=== PATIENT | female | born 1995 | race American Indian/Alaskan Native ===

== ENCOUNTER 2018-12-14 08:04 | Inpatient (IN) | payer MEDICAID ==
[2018-12-14] MEDS ORDERED: LACTATED RINGERS 1,000 ML IV SCH ×3 (09:00→10:00)
[2018-12-14] MEDS ORDERED: STADOL IV PRN (09:09)
[2018-12-14] MEDS ORDERED: MINERAL OIL PO PRN ×2 (09:09→09:51)
[2018-12-14] MEDS ORDERED: ZOFRAN IV PRN ×2 (09:09→17:20)
[2018-12-14] MEDS ORDERED: AMPICILLIN/NS 2 GM/100 ML 2 GM/100 ML BAG IV ONE (09:09)
[2018-12-14] MEDS ORDERED: BRETHINE IVP PRN ×2 (09:09→09:51)
[2018-12-14] MEDS ORDERED: XYLOCAINE 2% INFILTRATI ONE ×2 (09:09→10:00)
[2018-12-14] MEDS ORDERED: BRETHINE SUB-Q PRN ×2 (09:09→09:51)
[2018-12-14] MEDS ORDERED: SUBLIMAZE IV PRN (09:09)
[2018-12-14 09:37] LABS: Basophils % (Auto) 0.6 % (0.0-1.8); Eosinophils # (Auto) 0.1 K/mm3 (0.0-0.4); Hematocrit 36.8 % (30.3-42.9); Hemoglobin 12.3 gm/dl (10.1-14.3); Lymphocytes # (Auto) 1.5 K/mm3 (1.2-5.4); Lymphocytes % (Auto) 29.8 % (13.4-35.0); Mean Corpuscular HGB Conc 34 % (30-34); Mean Corpuscular Volume 79 fl (79-97); Monocytes # (Auto) 0.5 K/mm3 (0.0-0.8); Monocytes % (Auto) 9.5 % (0.0-7.3); Platelet Count 197 K/mm3 (140-440); Red Blood Count 4.68 M/mm3 (3.65-5.03); Red Cell Distribution Width 15.6 % (13.2-15.2)
[2018-12-14 09:42] LABS: Bacteria,Urine 1+ /HPF (Negative); Bilirubin,Urine NEG (Negative); Blood,Urine SM (Negative); Color,Urine Yellow (Yellow); Mucus,Urine FEW /HPF; Protein,Urine <15 mg/dL mg/dL (Negative)
[2018-12-14 09:47] LABS: Alanine Aminotransferase 8 units/L (7-56); Albumin 3.7 g/dL (3.9-5); BUN/Creatinine Ratio 10; Blood Urea Nitrogen 6 mg/dL (7-17); Calcium 8.6 mg/dL (8.4-10.2); Hemolysis Index 12
--- NOTE | 2018-12-14 09:51 | History and Physical Report ---
History of Present Illness Date of examination: 12/14/18 Date of admission: 12/14/18 08:56 Chief complaint: Labor History of present illness: Pt is a 23yo BF EDC 12/12/18; EGA 40 2/7 weeks presents to L&D complaining of RUC's q 3-4 mins. She had 1 visit at [facility] 10/27/18 and GBS was positive. She was also seen at [facility] for late care. Past History Past Medical History: no pertinent history Past Surgical History: no surgical history Family/Genetic History: none Social history: no significant social history, single - Obstetrical History Expected Date of Delivery: 12/12/18 Actual Gestation: 40 Week(s) 2 Day(s) : 2 Medications and Allergies Allergies Allergy/AdvReac Type Severity Reaction Status Date / Time shellfish derived Allergy Itching Verified 12/14/18 08:17 shrimp Allergy Itching Verified 12/14/18 08:17 Active Meds: Active Medications Butorphanol Tartrate (Stadol) 2 mg IV Q2H PRN PRN Reason: Pain , Severe (7-10) Ephedrine Sulfate (Ephedrine Sulfate) 10 mg IV Q2M PRN PRN Reason: Hypotension Fentanyl (Sublimaze) 100 mcg IV Q2H PRN PRN Reason: Labor Pain Lactated Ringer's (Lactated Ringers) 1,000 mls @ 125 mls/hr IV DIRECT GREGORY Ampicillin Sodium (Polycillin/Ns 2 Gm/100 Ml) 2 gm in 100 mls @ 100 mls/hr IV ONCE ONE; Protocol Stop: 12/14/18 10:08 Ampicillin Sodium (Ampicillin/Ns 1 Gm/50 Ml) 1 gm in 50 mls @ 100 mls/hr IV Q4HR GREGORY; Protocol Lactated Ringer's (Lactated Ringers) 1,000 mls @ 125 mls/hr IV DIRECT GREGORY Oxytocin/Sodium Chloride (Pitocin/Ns 20 Unit/1000ml Drip) 20 units in 1,000 mls @ 125 mls/hr IV DIRECT GREGORY Mineral Oil (Mineral Oil) 30 ml PO QHS PRN PRN Reason: Constipation Ondansetron HCl (Zofran) 4 mg IV Q8H PRN PRN Reason: Nausea And Vomiting Terbutaline Sulfate (Brethine) 0.25 mg SUB-Q ONCE PRN PRN Reason: Hyperstimulation/Hypertonicity Terbutaline Sulfate (Brethine) 0.25 mg IVP ONCE PRN PRN Reason: Hyperstimulation/Hypertonicity Review of Systems All systems: negative - Vital Signs Vital signs: Vital Signs Pulse BP 88 126/82 12/14/18 08:29 12/14/18 08:29 Temp Pulse Resp BP Pulse Ox 88 126/82 12/14/18 08:29 12/14/18 08:29 - Physical Exam Breasts: Positive: deferred Cardiovascular: Regular rate Lungs: Positive: Clear to auscultation Abdomen: Positive: normal appearance Genitourinary (Female): Positive: normal external genitalia Vagina: Positive: normal moisture Uterus: Positive: enlarged Extremities: Positive: normal - Obstetrical FHR: category 1 Uterine Contraction Monitor Mode: External Cervical Dilatation: 6 (per nurse) Cervical Effacement Percentage: 80 (per nusre) station: -2 Uterine Contraction Pattern: Regular Uterine Tone Measurement Phase: Contraction Uterine Contraction Intensity: Moderate Results Result Diagrams: 12/14/18 08:35 12/14/18 08:35 Abnormal lab results 12/14/18 12/14/18 Range/Units 08:35 08:35 MCH 26 L (28-32) pg RDW 15.6 H (13.2-15.2) % O'Brien % (Auto) 9.5 H (0.0-7.3) % Sodium 133 L (137-145) mmol/L Carbon Dioxide 20 L (22-30) mmol/L BUN 6 L (7-17) mg/dL Creatinine 0.6 L (0.7-1.2) mg/dL Alkaline Phosphatase 225 H (35-129) units/L Albumin 3.7 L (3.9-5) g/dL All other labs normal. Assessment and Plan - Patient Problems (1) 40 weeks gestation of Onset Date: 12/14/18 Current Visit: Yes Status: Acute Plan to address problem: A: IUP @ 40 2/7 weeks in labor Insufficient care +GBS P: Admit to L&D for expectant vaginal delivery IV Ampicillin (2) Insufficient care in third trimester Onset Date: 12/14/18 Current Visit: Yes Status: Acute (3) GBS (group B Streptococcus carrier), +RV culture, currently Onset Date: 12/14/18 Current Visit: Yes Status: Acute
[2018-12-14] MEDS ORDERED: PITOCin/NS 20 UNIT/1000ML DRIP 20 UNITS/1,000 ML BAG IV SCH ×3 (10:00→18:00)
[2018-12-14] MEDS ORDERED: PITOCin/NS 30 UNIT/500ML 30 UNITS/500 ML BAG IV SCH ×2 (10:00)
[2018-12-14] MEDS ORDERED: AMPICILLIN/NS 1 GM/50 ML 1 GM/50 ML BAG IV SCH (13:12)
[2018-12-14] MEDS ORDERED: NARCAN 2 MG/2 ML IV PRN (15:08)
--- NOTE | 2018-12-14 15:10 | Anesthesia Consultation ---
Anesthesia Consult and Med Hx - Airway Anesthetic Teeth Evaluation: Good ROM Head & Neck: Adequate Mental/Hyoid Distance: Adequate Mallampati Class: Class II Intubation Access Assessment: Good - Pulmonary Exam CTA: Yes - Cardiac Exam Cardiac Exam: RRR - Pre-Operative Health Status ASA Pre-Surgery Classification: ASA2 Proposed Anesthetic Plan: Epidural - Pulmonary Hx Asthma: No COPD: No Hx Pneumonia: No - Cardiovascular System Hx Hypertension: No - Central Nervous System Hx Seizures: No Hx Psychiatric Problems: No - Endocrine Hx Renal Disease: No Hx End Stage Renal Disease: No Hx Hypothyroidism: No Hx Hyperthyroidism: No - Hematic Hx Anemia: No Hx Sickle Cell Disease: No - Other Systems Hx Alcohol Use: No
--- NOTE | 2018-12-14 15:11 | Anesthesia Day of Surgery ---
Anesthesia Day of Surgery - Day of Surgery Patient Examined: Yes Patient H&P Reviewed: Yes Patient is NPO: Yes Beta Blockers: No Cardiac Clearance: No Pulmonary Clearance: No Keaton's Test: N/A
[2018-12-14] MEDS ORDERED: MARCAINE 0.25% INFILTRATI ONE (15:43)
[2018-12-14] MEDS ORDERED: fentaNYL-BUPIV 2 MCG/ML-0.125% 200 MCG/100 ML BAG EPIDURAL SCH (16:00)
--- NOTE | 2018-12-14 17:18 | Procedure Note ---
OB Delivery Note - Delivery Date of Delivery: 12/14/18 Surgeon: DINO ROSEN Estimated blood loss: 200cc - Vaginal Delivery presentation: vertex Delivery position: OA Intrapartum events: PROM->1hr before delivery, meconium, shoulder dystocia (resolved with Moose's positioning and suprapubic pressure) Delivery induction: none Delivery augmentation: rupture of membranes, pitocin Delivery monitor: external FHT, external uterine Route of delivery: Delivery placenta: spontaneous Delivery cord: 3 umbilical vessels Episiotomy: none Delivery laceration: 1st degree (perineal) Delivery repair: vicryl Anesthesia: epidural Delivery comments: Infant delivered OA with suprapubic pressure for shoulder dystocia, and handed to awaiting Peds/Rt in attendance - A at 1 minute: 7 at 5 minutes: 8 Gender: Male (4255gms)
[2018-12-14] MEDS ORDERED: DULCOLAX PR PRN (17:20)
[2018-12-14] MEDS ORDERED: TYLENOL PO PRN (17:20)
[2018-12-14] MEDS ORDERED: TUCKS PAD TP PRN (17:20)
[2018-12-14] MEDS ORDERED: MILK OF MAGNESIA PO PRN (17:20)
[2018-12-14] MEDS ORDERED: BENADRYL PO PRN (17:20)
[2018-12-14] MEDS ORDERED: PHENERGAN PO PRN (17:20)
[2018-12-14] MEDS ORDERED: PHENERGAN PR PRN (17:20)
[2018-12-14] MEDS ORDERED: LANSINOH TP PRN (17:20)
[2018-12-14] MEDS ORDERED: SODIUM CHLORIDE FLUSH SYRINGE 10 ML IV SCH (18:00)
[2018-12-14] MEDS: IBUPROFEN PO SCH (21:30)
[2018-12-14] MEDS: COLACE PO SCH (21:30)
[2018-12-14] MEDS: FEOSOL PO SCH (21:30)
[2018-12-15] MEDS: NORCO 5/325 PO PRN ×2 (04:49→20:43)
[2018-12-15] MEDS ORDERED: BOOSTRIX IM ONE (06:00)
[2018-12-15 06:31] LABS: Hematocrit 30.3 % (30.3-42.9); Hemoglobin 10.2 gm/dl (10.1-14.3)
--- NOTE | 2018-12-15 08:49 | Progress Note ---
Assessment and Plan - Patient Problems (1) 40 weeks gestation of Onset Date: 12/14/18 Current Visit: Yes Status: Resolved (2) Insufficient care in third trimester Onset Date: 12/14/18 Current Visit: Yes Status: Resolved (3) GBS (group B Streptococcus carrier), +RV culture, currently Onset Date: 12/14/18 Current Visit: Yes Status: Resolved (4) (normal spontaneous vaginal delivery) Onset Date: 12/15/18 Current Visit: Yes Status: Resolved Plan to address problem: A: S/P - PPD #1 Doing well Asymptomatic anemia - stable P: May go home tomorrow. Subjective - Subjective Date of service: 12/15/18 Principal diagnosis: s/p - PPD #1 Interval history: Pt is feeling well without complaints. Bleeding improved. Patient reports: appetite normal, voiding normally, pain well controlled, flatus, ambulating normally, no dizzy ambulation, no nauseated : doing well, nursing well Objective - Vital Signs Latest vital signs: Vital Signs Temp Pulse Resp BP BP Pulse Ox 12/15/18 06:00 98.1 F 68 18 105/51 97 12/15/18 00:47 98 F 98 H 18 115/55 96 12/14/18 19:37 98.2 F 67 18 110/48 96 12/14/18 18:35 92 H 111/58 12/14/18 18:20 96 H 118/62 12/14/18 18:05 88 119/61 12/14/18 17:51 89 123/61 12/14/18 17:35 96 H 127/57 12/14/18 17:22 102 H 121/59 12/14/18 17:21 106 H 145/112 12/14/18 16:07 87 133/63 12/14/18 16:00 75 135/60 12/14/18 15:57 76 94 12/14/18 15:54 67 140/88 12/14/18 15:53 82 98 12/14/18 15:48 92 H 98 12/14/18 15:43 77 98 12/14/18 10:20 16 12/14/18 09:56 87 131/78 12/14/18 09:55 97.9 F 87 16 131/78 97 Intake and Output 12/14/18 12/15/18 12/15/18 22:59 06:59 14:59 Intake Total 840 Output Total 800 400 Balance -800 440 Intake: Intake, Free Water 840 Output: Urine 800 400 Void 800 400 Other: Total, Output Amount 800 400 # Voids Void 800 Estimated Blood Loss 200 - Exam Breasts: Present: deferred Abdomen: Present: normal appearance, soft Uterus: Present: normal, firm, fundal height below umbilicus Extremities: Present: normal - Labs Labs: Abnormal lab results 12/14/18 12/14/18 Range/Units 08:35 08:35 MCH 26 L (28-32) pg RDW 15.6 H (13.2-15.2) % Braxton % (Auto) 9.5 H (0.0-7.3) % Sodium 133 L (137-145) mmol/L Carbon Dioxide 20 L (22-30) mmol/L BUN 6 L (7-17) mg/dL Creatinine 0.6 L (0.7-1.2) mg/dL Alkaline Phosphatase 225 H (35-129) units/L Albumin 3.7 L (3.9-5) g/dL Laboratory Tests 12/14/18 12/14/18 12/14/18 08:35 08:35 08:35 WBC 5.1 RBC 4.68 Hgb 12.3 Hct 36.8 MCV 79 MCH 26 L MCHC 34 RDW 15.6 H Plt Count 197 Lymph % (Auto) 29.8 Braxton % (Auto) 9.5 H Eos % (Auto) 1.0 Baso % (Auto) 0.6 Lymph # 1.5 Braxton # 0.5 Eos # 0.1 Baso # 0.0 Seg Neutrophils % 59.1 Seg Neutrophils # 3.0 Sodium Potassium Chloride Carbon Dioxide Anion Gap BUN Creatinine Estimated GFR BUN/Creatinine Ratio Glucose Calcium Total Bilirubin AST ALT Alkaline Phosphatase Total Protein Albumin Albumin/Globulin Ratio Urine Color Yellow Urine Turbidity Clear Urine pH 7.0 Ur Specific [place] 1.020 Urine Protein <15 mg/dl Urine Glucose (UA) Neg Urine Ketones Neg Urine Blood Sm Urine Nitrite Neg Urine Bilirubin Neg Urine Urobilinogen 2.0 Ur Leukocyte Esterase Tr Urine WBC (Auto) 4.0 Urine RBC (Auto) 3.0 U Epithel Cells (Auto) 4.0 Urine Bacteria (Auto) 1+ Urine Mucus Few RPR Hep Bs Antigen HIV 1&2 Antibody Rapid HIV P24 Antigen Rubella IgG Antibody Immune Blood Type Antibody Screen 12/14/18 12/14/18 12/14/18 08:35 08:35 08:35 WBC RBC Hgb Hct MCV MCH MCHC RDW Plt Count Lymph % (Auto) Braxton % (Auto) Eos % (Auto) Baso % (Auto) Lymph # Braxton # Eos # Baso # Seg Neutrophils % Seg Neutrophils # Sodium Potassium Chloride Carbon Dioxide Anion Gap BUN Creatinine Estimated GFR BUN/Creatinine Ratio Glucose Calcium Total Bilirubin AST ALT Alkaline Phosphatase Total Protein Albumin Albumin/Globulin Ratio Urine Color Urine Turbidity Urine pH Ur Specific [place] Urine Protein Urine Glucose (UA) Urine Ketones Urine Blood Urine Nitrite Urine Bilirubin Urine Urobilinogen Ur Leukocyte Esterase Urine WBC (Auto) Urine RBC (Auto) U Epithel Cells (Auto) Urine Bacteria (Auto) Urine Mucus RPR Nonreactive Hep Bs Antigen Non-reactive HIV 1&2 Antibody Rapid Non react HIV P24 Antigen Non react Rubella IgG Antibody Blood Type Antibody Screen 12/14/18 12/14/18 12/15/18 08:35 08:35 06:03 WBC RBC Hgb 10.2 Hct 30.3 D MCV MCH MCHC RDW Plt Count Lymph % (Auto) Braxton % (Auto) Eos % (Auto) Baso % (Auto) Lymph # Braxton # Eos # Baso # Seg Neutrophils % Seg Neutrophils # Sodium 133 L Potassium 4.4 Chloride 102.3 Carbon Dioxide 20 L Anion Gap 15 BUN 6 L Creatinine 0.6 L Estimated GFR > 60 BUN/Creatinine Ratio 10 Glucose 79 Calcium 8.6 Total Bilirubin 0.60 AST 18 ALT 8 Alkaline Phosphatase 225 H Total Protein 7.0 Albumin 3.7 L Albumin/Globulin Ratio 1.1 Urine Color Urine Turbidity Urine pH Ur Specific [place] Urine Protein Urine Glucose (UA) Urine Ketones Urine Blood Urine Nitrite Urine Bilirubin Urine Urobilinogen Ur Leukocyte Esterase Urine WBC (Auto) Urine RBC (Auto) U Epithel Cells (Auto) Urine Bacteria (Auto) Urine Mucus RPR Hep Bs Antigen HIV 1&2 Antibody Rapid HIV P24 Antigen Rubella IgG Antibody Blood Type O POSITIVE Antibody Screen Negative
[2018-12-15] MEDS: IBUPROFEN PO SCH (10:08)
[2018-12-15] MEDS: COLACE PO SCH ×2 (10:09→22:40)
[2018-12-15] MEDS: FEOSOL PO SCH ×2 (10:09→22:40)
[2018-12-15] MEDS: PRENATAL VITAMIN PO SCH (10:09)
[2018-12-15] MEDS ORDERED: M-M-R II VACCINE SUB-Q ONE (17:20)
[2018-12-16] MEDS: IBUPROFEN PO SCH ×4 (03:09→18:38)
[2018-12-16] MEDS: NORCO 5/325 PO PRN (03:25)
--- NOTE | 2018-12-16 08:03 | Discharge Summary ---
Providers - Providers Date of Admission: 12/14/18 08:56 Date of discharge: 12/16/18 Attending physician: DINO ROSEN Primary care physician: DINO ROSEN Hospitalization Reason for admission: active labor, IUP at term Delivery: Episiotomy: none Laceration: 1st degree Other procedures: none complications: none Discharge diagnosis: IUP at term delivered [place] baby: male Hospital course: Pt is a 23yo BF EDC 12/12/18; EGA 40 2/7 weeks who presented to L&D complaining of RUC's q 3-4 mins. She had 1 visit at [facility] 10/27/18 and GBS was positive. She had a with shoulder dystocia for a 4255gm male . Postpatum course was unremarkable, and she was discharged to home on PPD #2 in stable condition. Condition at discharge: Good Disposition: DC-01 TO HOME OR SELFCARE - Discharge Diagnoses (1) 40 weeks gestation of Status: Resolved (2) Insufficient care in third trimester Status: Resolved (3) GBS (group B Streptococcus carrier), +RV culture, currently Status: Resolved (4) (normal spontaneous vaginal delivery) Status: Resolved Plan - Discharge Medications Prescriptions: Ferrous Sulfate [Feosol 325 MG tab] 325 mg PO BID #60 tablet Ibuprofen [Motrin 600 MG tab] 600 mg PO Q6HR #30 tablet Vit-Fe Fumar-FA [ Vitamin] 1 each PO QDAY #30 tablet - Provider Discharge Summary Activity: routine, no sex for 6 weeks, no heavy lifting 4 weeks, no strenuous exercise Diet: routine Instructions: routine Additional instructions: [] Smoking cessation referral if applicable(refer to patient education folder for contact #) [] Refer to [facility] Booklet Call your doctor immediately for: * Fever > 100.5 * Heavy vaginal bleeding ( >1 pad per hour) * Severe persistent headache * Shortness of breath * Reddened, hot, painful area to leg or breast * Drainage or odor from incision. * Keep incision clean and dry at all times and follow doctor's instructions regarding bathing/showering - Follow up plan Follow up: DINO ROSEN MD [Primary Care Provider] - 6 Weeks GAVIN MONROE CNM [Advanced Practice Nurse] - 6 Weeks
[2018-12-16 09:49] VITALS: BP 112/70
[2018-12-16] MEDS: PRENATAL VITAMIN PO SCH (11:52)
[2018-12-16] MEDS: FEOSOL PO SCH (11:52)
[2018-12-16] MEDS: COLACE PO SCH (11:52)
== END 2018-12-16 19:15 | disposition home or self-care (01) | DRG 775 ==
LOC: TRG 08:04 → LD 08:56 → OB 19:36
PROVIDERS: ADMIT Obstetrics & Gynecology; ATTEND Obstetrics & Gynecology
PROC: 10E0XZZ Delivery of Products of Conception, External Approach (ICD-10-PCS; principal; 2018-12-14)
PROC: 0HQ9XZZ Repair Perineum Skin, External Approach (ICD-10-PCS; 2018-12-14)
PROC: 3E0R3BZ Introduction of Anesthetic Agent into Spinal Canal, Percutaneous Approach (ICD-10-PCS; 2018-12-14)
PROC: 00HU33Z Insertion of Infusion Device into Spinal Canal, Percutaneous Approach (ICD-10-PCS; 2018-12-14)
PROC: 3E0234Z Introduction of Serum, Toxoid and Vaccine into Muscle, Percutaneous Approach (ICD-10-PCS; 2018-12-15)
DX: O42.92 Full-term premature rupture of membranes, unspecified as to length of time between rupture and onset of labor (principal); O99.824 Streptococcus B carrier state complicating childbirth; O77.0 Labor and delivery complicated by meconium in amniotic fluid; O66.0 Obstructed labor due to shoulder dystocia; Z3A.40 40 weeks gestation of pregnancy; Z37.0 Single live birth; Z23 Encounter for immunization; Z88.8 Allergy status to other drugs, medicaments and biological substances; Z91.013 Allergy to seafood; O70.0 First degree perineal laceration during delivery; O90.81 Anemia of the puerperium; D64.9 Anemia, unspecified
CPT/HCPCS: 36415; 80053; 81001; 85014; 85018; 85025; 86592; 86706; 86762; 86850; 86900; 86901; 87806; 88307; G0378; A6250; J0290; J0595; J2405; J2590; J3010; J7120